=== PATIENT | female | born 1970 | race Caucasian/White ===

== ENCOUNTER 2018-09-15 07:16 | Outpatient (CLI) | payer BC | END 2018-09-15 23:59 | disposition home or self-care (01) | LOC: PETCFH 07:16 | PROVIDERS: ATTEND Internal Medicine Gastroenterology | DX: M46.1 Sacroiliitis, not elsewhere classified (principal); K59.00 Constipation, unspecified | CPT/HCPCS: 74018; 76700; 78227; A9537 ==